=== PATIENT | male | born 1935 | race Caucasian/White ===

== ENCOUNTER → 2017-01-29 06:54 | Emergency (ER) | payer MEDICARE, OTHER ==
[~2017-01-29 06:54] MED LIST: Dexamethasone IV* 4 MG/ML 1 ML (4 MG) IV SLOW PU ONE; Iohexol 300* (CONTRAST) 10 ML SDV IV ONE; Morphine INJ* 4 MG/ML 1 ML CARPUJECT IV ONE; NS 0.9% 1000 ML* 1,000 ML IV ONE; Orphenadrine Citrate IV* 30 MG/ML 2 ML VIAL IM ONE; Orphenadrine Citrate IV* 30 MG/ML 2 ML VIAL IV ONE
[2017-01-29 08:12] LABS: Hematocrit 35 % (42-52); Hemoglobin 12.1 g/dl (14.0-18.0); Mean Corpuscular HGB Conc 35 g/dl (31-36); Mean Corpuscular Hemoglobin 34 pg (27-31); Mean Corpuscular Volume 98 fL (80-94); Mean Platelet Volume 11 um3 (7.4-10.4); Red Blood Count 3.56 10^6/ul (4.0-5.4); Red Cell Distribution Width 15 % (10.5-15); White Blood Count 9.4 10^3/ul (3.5-10.8)
[2017-01-29 08:22] LABS: ALT 47 U/L (7-52); Albumin 3.9 g/dL (3.2-5.2); Alkaline Phosphatase 40 U/L (34-104); BUN/Creatinine Ratio 17.1 (8-20); Blood Urea Nitrogen 13 mg/dL (6-24); CO2 Carbon Dioxide 26 mmol/L (22-32); Calcium 8.5 mg/dL (8.6-10.3); Chloride 98 mmol/L (101-111); EGFR African American 126.6 (>60); EGFR Non-African American 98.4 (>60); Globulin 2.5 g/dL (2-4); Glucose 98 mg/dL (70-100); Sodium 129 mmol/L (133-145); Total Protein 6.4 g/dL (6.4-8.9)
[2017-01-29 08:24] LABS: Troponin I 0.01 ng/mL (<0.04)
[2017-01-29 08:41] LABS: Creatine Kinase 2652 U/L (10-223)
[2017-01-29 08:42] LABS: Urine Bilirubin Negative (Negative); Urine Glucose Negative (Negative); Urine Nitrite Negative (Negative)
[2017-01-29 08:47] LABS: Anion Gap 5 mmol/L (2-11)
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
[2017-01-29 11:24] VITALS: BP 134/74
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
== END | disposition home or self-care (01) ==
LOC: ED 06:54
DX: S22.20XA Unspecified fracture of sternum, initial encounter for closed fracture (principal); S30.0XXA Contusion of lower back and pelvis, initial encounter; S30.1XXA Contusion of abdominal wall, initial encounter; V43.52XA Car driver injured in collision with other type car in traffic accident, initial encounter; Y93.89 Activity, other specified; Y92.410 Unspecified street and highway as the place of occurrence of the external cause; M51.34 Other intervertebral disc degeneration, thoracic region; M51.36 Other intervertebral disc degeneration, lumbar region; Z88.6 Allergy status to analgesic agent
CPT/HCPCS: 36415; 70450; 71260; 72125; 72128; 72131; 74177; 80053; 81003; 82550; 84484; 85025; 85610; 93005; 96361; 96374; 96375; 96376; 99282; J1100; J2270; J2360; Q9967

== ENCOUNTER 2017-01-29 22:25 | Emergency (ER) | payer MEDICARE, OTHER ==
[2017-01-30 00:02] LABS: Urine Bilirubin Negative (Negative); Urine Glucose 2+(150 mg/dL) (Negative); Urine Nitrite Negative (Negative)
[2017-01-30 00:07] LABS: Hematocrit 34 % (42-52); Hemoglobin 11.5 g/dl (14.0-18.0); Mean Corpuscular HGB Conc 34 g/dl (31-36); Mean Corpuscular Hemoglobin 34 pg (27-31); Mean Corpuscular Volume 100 fL (80-94); Mean Platelet Volume 10 um3 (7.4-10.4); Red Blood Count 3.38 10^6/ul (4.0-5.4); Red Cell Distribution Width 14 % (10.5-15); White Blood Count 8.6 10^3/ul (3.5-10.8)
[2017-01-30 00:19] LABS: Albumin 3.8 g/dL (3.2-5.2); BUN/Creatinine Ratio 20.2 (8-20); Calcium 8.5 mg/dL (8.6-10.3); EGFR African American 112.8 (>60); EGFR Non-African American 87.7 (>60); Globulin 2.6 g/dL (2-4); Potassium 4.1 mmol/L (3.5-5.0); Total Bilirubin 0.8 mg/dL (0.2-1.0); Total Protein 6.4 g/dL (6.4-8.9)
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
[2017-01-30 07:11] VITALS: BP 125/69
--- NOTE | 2017-01-30 09:44 | RAD ---
Indication: Altered mental status. Comparison: January 29, 2017 CT. Technique: Upright AP 2340 hours Report: Clear lungs and pleural spaces. Negative for pneumothorax. Small retrocardiac hiatal hernia. Negative for cardiomegaly. Unremarkable central pulmonary vasculature and mediastinal contours accounting for rightward rotation. IMPRESSION: No evidence for acute intrathoracic disease.
--- NOTE | 2017-01-30 10:56 | RAD ---
Indication: Altered mental status. Comparison: January 29, 2017 CT. Technique: Noncontrast CT vertex of skull through foramen magnum. Exam repeated due to motion artifact. Report: Moderately severe prominence of the cerebral sulci and cerebellar fissures reflecting atrophy. Proportional enlargement of the ventricles. Patent basal cisterns. Negative for redmond matter white matter obscuration, intra or extra-axial hemorrhage, or mass effect. 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 Unremarkable orbital contents. No suspicious calvarial or skull base lesion evident. Clear visualized paranasal sinuses and mastoid air spaces. Unremarkable scalp. IMPRESSION: 1. No acute intracranial process evident. 2. Atrophy and stigmata of chronic small vessel ischemic change.
== END 2017-01-30 07:13 | disposition home or self-care (01) ==
LOC: ED 22:25
DX: R42 Dizziness and giddiness (principal); T50.905A Adverse effect of unspecified drugs, medicaments and biological substances, initial encounter; Y92.9 Unspecified place or not applicable; R41.82 Altered mental status, unspecified
CPT/HCPCS: 36415; 70450; 71010; 80053; 81003; 84484; 85025; 85610; 85730; 93005; 99283